=== PATIENT | male | born 1960 | race Caucasian/White ===

== ENCOUNTER 2019-03-15 19:39 | Emergency (ER) | payer BC ==
--- NOTE | 2019-03-15 19:50 | PDOC ---
Rapid Medical Evaluation Time Seen by Provider: 03/15/19 19:48 Medical Evaluation: Allergies Allergy/AdvReac Type Severity Reaction Status Date / Time No Known Allergies Allergy Verified 06/26/13 12:23 03/15/19 19:48 CC: dizziness and inability to tolerate PO's x1 week PE: No focal findings. Orders: ekg, labs, urine Patient will proceed to ED for continued evaluation. Discharge Disposition - Diagnosis Dizziness - Referrals Referrals: Israel Ramirez MD [Primary Care Provider] - - Patient Instructions - Post Discharge Activity
[2019-03-15 19:53] VITALS: BMI 30.1
[2019-03-15] MEDS ORDERED: ASPIRIN 81 MG CHEWABLE TABLETS PO ONE (21:00)
[2019-03-15 21:01] LABS: BASO % 0.7 % (0-2.0); EOS % 0.4 % (0-4.5); HEMATOCRIT 45.7 % (35.4-49); HEMOGLOBIN 16.1 GM/dL (11.7-16.9); LYMPH % 15.3 % (8-40); MCH 33.8 pg (25.7-33.7); MCHC 35.2 g/dl (32.0-35.9); MEAN CELL VOLUME 95.9 fl (80-96); MONO % 7.3 % (3.8-10.2); NEUT % 76.3 % (42.8-82.8); PLATELET COUNT 217 K/MM3 (134-434); RBC 4.77 M/mm3 (4.00-5.60); RDW 12.9 % (11.9-15.9); WHITE BLOOD COUNT 7.2 K/mm3 (4.0-10.0)
[2019-03-15] MEDS ORDERED: ASPIRIN 81 MG CHEWABLE TABLETS ONE (21:03)
[2019-03-15 21:10] LABS: INR 1.11 (0.83-1.09); PROTHROMBIN TIME (PATIENT) 13.1 SEC (9.7-13.0)
[2019-03-15 21:16] LABS: ALBUMIN 3.8 g/dl (3.4-5.0); BLOOD UREA NITROGEN 20.1 mg/dL (7-18); CALCIUM 9.2 mg/dL (8.5-10.1); CREATININE 0.9 mg/dL (0.55-1.3); MAGNESIUM 2.3 mg/dL (1.8-2.4); POTASSIUM 4.1 mmol/L (3.5-5.1)
--- NOTE | 2019-03-15 21:20 | PDOC ---
Documentation entered by Lidia Pruett SCRIBE, acting as scribe for Jl Cohen MD. Jl Cohen MD: This documentation has been prepared by the Flynn molina Brenda, SCRIBE, under my direction and personally reviewed by me in its entirety. I confirm that the documentation accurately reflects all work, treatment, procedures, and medical decision making performed by me. Attending Attestation - Resident Resident Name: Yong Bernal - ED Attending Attestation I have performed the following: I have examined & evaluated the patient, The case was reviewed & discussed with the resident, I agree w/resident's findings & plan, Exceptions are as noted - HPI HPI: 03/15/19 22:13 The patient is a 58 year old male, with a significant PMH of glioblastoma (s/p craniotomy and resection) who presents to the emergency department with 1 week of weakness and lightheadedness. As per the neighbors, who accompanied him, they were worried that he was not able to walk 10 steps in a total of 20 minutes , prompting his arrival to the ED. The patient also notes jaw numbness/ tingling. The patient denies any pain, chest pain, shortness of breath, headache and dizziness. Denies fever, chills, nausea, vomiting, diarrhea and constipation. Denies dysuria, frequency, urgency and hematuria. Allergies: NKA Past surgical history: Craniotomy in 2018, appendectomy PCP: Israel Ramirez - Physicial Exam PE: 03/15/19 23:06 Vitals: Triage vital signs reviewed General Appearance: No acute distress, well nourished, well developed Head: Atraumatic Eyes: Pupils equal reactive round, extraocular movement intact Chest Wall: Nontender Cardiac: Regular rate and rhythm, no murmurs, no rubs, no gallops Lungs: Clear to auscultation bilateral, good air movement bilaterally Abdomen: Soft, nondistended, normal bowel sounds, nontender to palpation Extremities: Full range of motion to all extremities, no cyanosis, clubbing, or edema Skin: Warm and dry, no rashes or lesions, no rash, no petechiae Neuro: (=) Shuffling unsteady gait. AOX3; Cranial Nerves 2-12 grossly intact, Sensation intact to all extremities. Psych: Normal mood, normal affect - Critical Care Time Total Critical Care Time: 35 Critical Care Statement: The care of this patient involved high complexity decision making to prevent further life threatening deterioration of the patient 's condition and/or to evaluate & treat vital organ system(s) failure or risk of failure. 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 Arvizu at [facility] We'll transfer for definitive management Here in the emergency department patient initially hypertensive now 161 systolic. Patient will be placed on IV Cardene drip for blood pressure control. IV Decadron given for edema, IV Keppra given for seizure prophylaxis Patient informed of all imaging results and consented for transfer Dr. Arvizu accepting physician Findings discussed at length with patient at bedside.
[2019-03-15] MEDS ORDERED: ONDANSETRON 4 MG/2 ML VIAL IVPUSH ONE (21:43)
--- NOTE | 2019-03-15 21:43 | PDOC ---
History of Present Illness - General Chief Complaint: Lightheaded Stated Complaint: WEAKNESS Time Seen by Provider: 03/15/19 19:48 History Source: Patient Exam Limitations: No Limitations - History of Present Illness Initial Comments: 03/15/19 23:49 58 yo male pmh glioblastoma (s/p craniotomy 2018 at [facility]) presents to the ED for 1 weak of lightheadedness and generalized weakness. Pts neighbours bring pt in the ED, not he is significantly weaker than baseline, unable to care for himself at home. Pt admits to NB/NB vomiting as well. Denies BERNSTEIN, confusion, CP, SOB, F/C, changes in bowel or bladder habits. Past History - Past Medical History Allergies/Adverse Reactions: Allergies Allergy/AdvReac Type Severity Reaction Status Date / Time No Known Allergies Allergy Verified 06/26/13 12:23 Home Medications: Ambulatory Orders No Home Medications 0 dose .ROUTE UTDICT 06/26/13 Oxycodone HCl/Acetaminophen [Percocet 5-325 mg Tablet -] 1 tab PO Q6H #10 tablet 06/26/13 Cancer: No Cardiac Disorders: No CVA: No COPD: No - Surgical History Appendectomy: Yes - Suicide/Smoking/Psychosocial Hx Smoking History: Never smoked Review of Systems - Review of Systems Constitutional: Yes: See HPI HEENTM: Yes: See HPI Respiratory: Yes: See HPI Cardiac (ROS): Yes: See HPI ABD/GI: Yes: See HPI : Yes: See HPI Musculoskeletal: Yes: See HPI Integumentary: Yes: See HPI Neurological: Yes: See HPI *Physical Exam - Vital Signs Last Vital Signs Temp Pulse Resp BP Pulse Ox 97.5 F L 68 20 183/94 H 95 03/15/19 19:47 03/15/19 19:47 03/15/19 19:47 03/15/19 19:47 03/15/19 19:47 - Physical Exam General Appearance: Yes: Nourished, Appropriately Dressed, Apparent Distress ( unsteady gait) HEENT: positive: EOMI, MICHELLE, Normal Voice, Hearing Grossly Normal Neck: positive: Supple. negative: Carotid bruit Respiratory/Chest: positive: Lungs Clear, Normal Breath Sounds. negative: Accessory Muscle Use, Crackles, Rales, Rhonchi, Stridor, Wheezing Cardiovascular: positive: Regular Rhythm, Regular Rate, S1, S2. negative: Edema , JVD, Murmur Vascular Pulses: Dorsalis-Pedis (R): 4+, Doralis-Pedis (L): 4+ Gastrointestinal/Abdominal: positive: Flat, Soft. 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 negative: Confused, Disoriented ED Treatment Course - LABORATORY CBC & Chemistry Diagram: 03/15/19 20:34 03/15/19 20:34 - ADDITIONAL ORDERS Additional order review: Laboratory Results 03/15/19 03/15/19 03/15/19 20:34 20:34 20:34 PT with INR 13.10 H INR 1.11 H Sodium 132 L Potassium 4.1 Chloride 96 L Carbon Dioxide 27 Anion Gap 9 BUN 20.1 H Creatinine 0.9 Est GFR (CKD-EPI)AfAm 107.22 Est GFR (CKD-EPI)NonAf 92.51 Random Glucose 170 H Calcium 9.2 Magnesium 2.3 Total Bilirubin 1.0 AST 18 ALT 21 Alkaline Phosphatase 73 Creatine Kinase 56 Troponin I < 0.02 Total Protein 7.0 Albumin 3.8 03/15/19 20:34 RBC 4.77 MCV 95.9 MCHC 35.2 RDW 12.9 MPV 9.0 Neutrophils % 76.3 Lymphocytes % 15.3 Monocytes % 7.3 Eosinophils % 0.4 Basophils % 0.7 - RADIOLOGY Radiology Studies Ordered: Category Date Time Status HEAD CT WITHOUT CONTRAST [CT] Stat CT Scan 03/15/19 21:13 Taken Medical Decision Making - Medical Decision Making 03/15/19 23:48 58 yo male pmh glioblastoma (s/p craniotomy 2018 at [facility]) presents to the ED for 1 weak of lightheadedness and generalized weakness. Pts neighbours bring pt in the ED, not he is significantly weaker than baseline, unable to care for himself at home. Pt admits to NB/NB vomiting as well. Denies BERNSTEIN, confusion, CP, SOB, F/C, changes in bowel or bladder habits. Vitals show elevated BP Pt arrives to the ED unsteady, unable to ambulate and reports living alone and takes care of himself. 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 Arvizu at [facility] Pt given Decadron for edema, Keppra and a Cardene drip for BP control titrate below 160 systolic Patient informed of all imaging results and consented for transfer Dr. Arvizu accepting physician Pt ready for transfer. Will s/o to night team to monitor before transfer *DC/Admit/Observation/Transfer Diagnosis at time of Disposition: Dizziness - Referrals Referrals: Israel Ramirez MD [Primary Care Provider] - - Patient Instructions - Post Discharge Activity
[2019-03-15] MEDS ORDERED: ONDANSETRON 4 MG/2 ML VIAL ONE (22:14)
[2019-03-15] MEDS ORDERED: levETIRAcetam 500 MG/5 ML INJECTION VIAL IVPB ONE ×2 (23:05→23:14)
[2019-03-15] MEDS ORDERED: DEXAMETHASONE SOD PHOSPHATE 10 MG/1 ML VIAL IVPUSH ONE (23:05)
[2019-03-15] MEDS ORDERED: DEXAMETHASONE SOD PHOSPHATE 10 MG/1 ML VIAL ONE (23:14)
[2019-03-15] MEDS ORDERED: NICARDIPINE 25 MG in DEXTROSE 5%-WATER - 240 ML IVPB SCH (23:15)
[2019-03-15 23:33] VITALS: BP 169/97; PULSE 63; TEMP 98.3
--- NOTE | 2019-03-16 16:11 | EKG ---
Test Reason : Blood Pressure : / mmHG Vent. Rate : 058 BPM Atrial Rate : 058 BPM P-R Int : 208 ms QRS Dur : 090 ms QT Int : 426 ms P-R-T Axes : 062 034 056 degrees QTc Int : 418 ms SINUS BRADYCARDIA POSSIBLE LEFT ATRIAL ENLARGEMENT ST ELEVATION CONSIDER INFERIOR INJURY OR ACUTE INFARCT ACUTE LA / STEMI ABNORMAL ECG NO PREVIOUS ECGS AVAILABLE Confirmed by MD SARAH, ERNST ([id number]) on 03/16/2019 4:11:01 PM Referred By: Confirmed By:ERNST SMITH MD
--- NOTE | 2019-03-18 11:40 | EKG ---
Test Reason : Blood Pressure : / mmHG Vent. Rate : 050 BPM Atrial Rate : 050 BPM P-R Int : 220 ms QRS Dur : 090 ms QT Int : 448 ms P-R-T Axes : 036 005 031 degrees QTc Int : 408 ms SINUS BRADYCARDIA WITH 1ST DEGREE A-V BLOCK POSSIBLE LEFT ATRIAL ENLARGEMENT BORDERLINE ECG WHEN COMPARED WITH ECG OF 15-MAR-2019 20:43, NO SIGNIFICANT CHANGE WAS FOUND Confirmed by TRISTAN PEREIRA, ALEX ([id number]) on 03/18/2019 11:40:11 AM Referred By: Confirmed By:ALEX HUDSON MD
== END 2019-03-16 | disposition short-term general hospital (02) ==
LOC: JER 19:39
PROC: 3E033GC Introduction of Other Therapeutic Substance into Peripheral Vein, Percutaneous Approach (ICD-10-PCS; principal; 2019-03-15)
DX: R42 Dizziness and giddiness (principal); R03.0 Elevated blood-pressure reading, without diagnosis of hypertension; D49.6 Neoplasm of unspecified behavior of brain
CPT/HCPCS: 36415; 70450-TC; 71045-TC-FY; 80053; 82550; 83735; 84484; 85025; 85610; 93005; 93010; 99285-25; J1100